=== PATIENT | female | born 1950 | race Caucasian/White ===

== ENCOUNTER → 2021-04-20 | Outpatient (CLI) | payer MEDICARE, OTHER ==
[~2021-04-20] MED LIST: IOPAMIDOL 370 MG/ML 200 ML INFUS..BTL INJ ONE; SODIUM CHLORIDE 0.9% 100 ML ONE; SODIUM CHLORIDE 0.9% 250ML 250 ML ONE; SODIUM CHLORIDE 0.9% 500ML 500 ML ONE
[2021-04-20 14:01] LABS: CREATININE, SERUM 1.05 mg/dL (0.57-1.11)
== END ==
LOC: CT 12:54
PROVIDERS: ATTEND Internal Medicine Cardiovascular Disease
DX: I71.2 Thoracic aortic aneurysm, without rupture (principal)
CPT/HCPCS: 36415; 71275; 82565; 84520; 96360; J7040; J7050 ×2; Q9967

== ENCOUNTER → 2021-05-02 | Outpatient (CLI) | payer MEDICARE, OTHER | LOC: US 07:42 | PROVIDERS: ATTEND Internal Medicine Cardiovascular Disease | DX: Q44.6 Cystic disease of liver (principal) | CPT/HCPCS: 76705 ==